=== PATIENT | female | born 1990 | race Caucasian/White ===

== ENCOUNTER 2019-12-03 13:49 | Emergency (ER) | payer OTHER, SELFPAY ==
[2019-12-03 13:58] VITALS: BP 108/65; PULSE 68; RESP 16; TEMP 36.4; O2SAT 100
--- NOTE | 2019-12-03 14:18 | ED_ITS ---
HPI - Animal Bite General Chief Complaint: Animal Bite Stated Complaint: cat bite History of Present Illness HPI narrative: This is a 29 year old female that comes from work due to she has been bitten by a cat. Patient has four puncture holes in her right forearm. Patient states that her TD is up to date Related Data Home Medications Medication Instructions Recorded Confirmed Nuva Ring 12/03/19 Allergies Allergy/AdvReac Type Severity Reaction Status Date / Time No Known Allergies Allergy Verified 12/03/19 13:57 Review of Systems 2 Review of Systems: Narrative: CONSTITUTIONAL: Denies fever, chills, or sweats. EYES: Denies visual changes, redness, or discharge. ENT: Denies rhinorrhea, congestion, sore throat, or otalgia. CARDIOVASCULAR:Denies chest pain, palpitations, or edema. RESPIRATORY: Denies cough or dyspnea. GASTROINTESTINAL: Denies abdominal pain, nausea, vomiting, or diarrhea. GENITOURINARY: Denies dysuria or hematuria. SKIN:[Denies rash or itching.cat bite in the right forearm MUSCULOSKELETAL:Denies back pain, joint pain, or myalgia. NEUROLOGIC: Denies headache, numbness, or weakness. PSYCHIATRIC:Denies anxiety or depression PMFSH Comments At time as signature, I have reviewed and agree with nursing past medical, social, surgical and family history. Please see nursing chart for further information. There is no relevant family history pertinent to the presenting complaint. Exam Narrative: Exam Narrative: GENERAL:Well-appearing, well-nourished, and in no acute distress. HEAD:Normocephalic, atraumatic. EYES: PERRLA and EOMI. ENT: Nares clear, no rhinorrhea or epistaxis. Mucous membranes moist. NECK: Supple. CHEST: Clear to auscultation. No respiratory distress. HEART: Regular rate and rhythm. No murmur heard. Normal peripheral pulses. ABDOMEN: Soft, nontender, nondistended, normal active bowel sounds. EXTREMITIES: Normal range of motion. No edema. SKIN: Warm, dry, no rash. 4 mitchell from cat bite minimal opening no bleeding NEURO: No focal deficits. Alert and oriented x3. Course Vital Signs Vital signs: Vital Signs Temperature 97.5 F L 12/03/19 13:58 Pulse Rate 68 12/03/19 13:58 Respiratory Rate 16 12/03/19 13:58 Blood Pressure 108/65 12/03/19 13:58 Pulse Oximetry 100 12/03/19 13:58 Temperature 97.5 F L 12/03/19 13:58 Pulse Rate 68 12/03/19 13:58 Respiratory Rate 16 12/03/19 13:58 Blood Pressure 108/65 12/03/19 13:58 Pulse Oximetry 100 12/03/19 13:58 Discharge Plan Discharge Clinical Impression: Bite by animal Cat bite Qualifiers: Encounter type: initial encounter Qualified Code(s): W55.01XA - Bitten by cat, initial encounter Patient Disposition: Home, Self-Care Condition: Stable Instructions: Antibiotic Form, Animal Bite (ED) Prescriptions: New mupirocin 2 % ointment 1 applic TOPICAL TID Qty: 22 RF: 0 amoxicillin-pot clavulanate [Augmentin] 875-125 mg tablet 1 tablet PO Q12H 7 Days Qty: 14 RF: 0 No Action Nuva Ring RF: 0 Follow-up/Referrals: PHYSICIAN,ROBOTIC WELDING OPERATOR [Primary Care Provider] - Time of Disposition: 14:23 Discharge Date/Time: 12/03/19 14:30
== END 2019-12-03 14:30 | disposition home or self-care (01) ==
PROVIDERS: Emergency Provider Nurse Practitioner Family
DX: S51.851A Open bite of right forearm, initial encounter (principal); W55.01XA Bitten by cat, initial encounter
CPT/HCPCS: 99203; G0463